=== PATIENT | female | born 1995 | race Caucasian/White ===

== ENCOUNTER 2018-01-20 17:12 | Emergency (ER) | payer OTHER, MEDICAID ==
[~2018-01-20] VITALS: Ht 162.6 cm; Wt 76.7 kg
[~2018-01-20 17:12] MED LIST: ADDERALL 20 MG20 MG; CEPHALEXIN 500500 M3 PO; IBUPROFEN 800800 M1 PO; TYLENOL325 MG PO; [UNRECOGNIZED DRUG - REMARK]
[2018-01-20] MEDS ORDERED: DEPO-PROVER150 MG/M1 IM (17:27)
[2018-01-20 18:14] LABS: URINE BILIRUBIN NEGATIVE (Negative); URINE BLOOD 2+ (Negative); URINE CLARITY CLOUDY; URINE COLOR YELLOW; URINE GLUCOSE-RANDOM NEGATIVE (Negative); URINE KETONES NEGATIVE (Negative); URINE LEUKOCYTES-REFLEX NEGATIVE (Negative); URINE NITRITE-REFLEX NEGATIVE (Negative); URINE PROTEIN 1+ (Negative); URINE UROBILINOGEN 0.2 E.U./dl (0.2-1.0)
[2018-01-20 18:23] LABS: BACTERIA-REFLEX 1-9 Few /HPF (None Seen); CASTS None Seen /LPF (None Seen); MUCUS 0-3 Light strn/LPF (None Seen); SQUAMOUS 4-10 Moderate /LPF (0-3); URINE RBC 3-10 Few /HPF (0-2); URINE WBC-REFLEX 0-5 Rare /HPF (0-5)
[2018-01-20 18:24] LABS: AMORPHOUS PHOSPHATES Many /LPF (None Seen)
[2018-01-20] MEDS ORDERED: FLAGYL500 MG PO (18:48)
[2018-01-20 19:05] VITALS: BP 107/65
== END 2018-01-20 19:08 | disposition home or self-care (01) ==
LOC: M.ERS 17:12
PROVIDERS: Physician Assistant
DX: N76.0 Acute vaginitis (principal); B96.89 Other specified bacterial agents as the cause of diseases classified elsewhere; N72 Inflammatory disease of cervix uteri; A59.9 Trichomoniasis, unspecified; Z90.49 Acquired absence of other specified parts of digestive tract

== ENCOUNTER 2018-01-24 10:57 | Emergency (ER) | payer OTHER, MEDICAID ==
[~2018-01-24] VITALS: Ht 162.6 cm; Wt 76.7 kg
[~2018-01-24 10:57] MED LIST changes: +DEPO-PROVER150 MG/M1 IM; +FLAGYL500 MG PO
[2018-01-24 11:35] LABS: INFLUENZA A ANTIGEN None Detected (None Detect)
[2018-01-24] MEDS ORDERED: FLONASE 0.05%50 MCG NASAL (11:39)
[2018-01-24] MEDS ORDERED: OSELB75 PO (11:39)
[2018-01-24 12:00] VITALS: BP 120/81
== END 2018-01-24 12:08 | disposition home or self-care (01) ==
LOC: M.ERS 10:57
PROVIDERS: Nurse Practitioner Family
DX: J10.1 Influenza due to other identified influenza virus with other respiratory manifestations (principal); L98.8 Other specified disorders of the skin and subcutaneous tissue; Z90.49 Acquired absence of other specified parts of digestive tract

== ENCOUNTER 2018-04-08 13:48 | Emergency (ER) | payer OTHER, MEDICAID ==
[~2018-04-08] VITALS: Ht 162.6 cm; Wt 83.0 kg
[~2018-04-08 13:48] MED LIST changes: +FLONASE 0.05%50 MCG NASAL; +OSELB75 PO
[2018-04-08 14:21] LABS: URINE BILIRUBIN NEGATIVE (Negative); URINE BLOOD 2+ (Negative); URINE CLARITY CLEAR; URINE COLOR YELLOW; URINE GLUCOSE-RANDOM NEGATIVE (Negative); URINE KETONES NEGATIVE (Negative); URINE LEUKOCYTES-REFLEX NEGATIVE (Negative); URINE NITRITE-REFLEX NEGATIVE (Negative); URINE PROTEIN 1+ (Negative); URINE SPECIFIC GRAVITY 1.015 (1.005-1.030)
[2018-04-08 14:27] LABS: SQUAMOUS >10 Many /LPF (0-3)
[2018-04-08 14:28] LABS: BACTERIA-REFLEX None Seen /HPF (None Seen); CASTS None Seen /LPF (None Seen); CRYSTALS None Seen /LPF (None Seen); MUCUS 0-3 Light strn/LPF (None Seen); URINE RBC 3-10 Few /HPF (0-2); URINE WBC-REFLEX None Seen /HPF (0-5)
[2018-04-08 14:49] LABS: ABSOLUTE BASOPHILS 0.2 thou/uL (0.0-0.2); ABSOLUTE EOSINOPHILS 0.6 thou/uL (0.0-0.7); ABSOLUTE MONOCYTES 0.6 thou/uL (0.0-1.2); BASOPHILS 1.5 %; EOSINOPHILS 4.9 %; HEMATOCRIT 43.8 % (37.0-47.0); HEMOGLOBIN 14.7 gm/dL (12.0-15.0); LYMPHOCYTES 31.9 %; MCH 28.5 pg (26.0-34.0); MCHC 33.5 g/dL (28.0-37.0); MCV 85.1 fL (80.0-100.0); MONOCYTES 5.2 %; MPV 7.5 fl. (7.2-11.1); NUCLEATED RBCS 0 /100WBC; PLATELET COUNT* 361 thou/uL (150-400); POLYS 56.5 %; RBC 5.14 mil/uL (4.20-5.00); RDW-CV 13.5 % (10.5-14.5); WBC 12.5 thou/uL (4.0-11.0)
[2018-04-08 15:04] LABS: CALCIUM 9.2 mg/dL (8.5-10.1); CREATININE 0.6 mg/dL (0.6-1.3)
[2018-04-08 15:09] LABS: ALBUMIN 3.8 g/dL (3.4-5.0); TOTAL BILIRUBIN 0.7 mg/dL (<0.1-1.0); TOTAL PROTEIN 7.5 g/dL (6.4-8.2)
[2018-04-08] MEDS ORDERED: TRAMADOL 50 MG50 MG PO (15:37)
[2018-04-08] MEDS ORDERED: FLAGYL500 MG PO (15:37)
[2018-04-08 15:48] VITALS: BP 130/84
== END 2018-04-08 15:49 | disposition home or self-care (01) ==
LOC: M.ERS 13:48
PROVIDERS: Physician Assistant
DX: G89.29 Other chronic pain (principal); R10.9 Unspecified abdominal pain; N76.0 Acute vaginitis; B96.89 Other specified bacterial agents as the cause of diseases classified elsewhere; Z90.49 Acquired absence of other specified parts of digestive tract

== ENCOUNTER 2018-06-01 13:19 | Emergency (ER) | payer OTHER, MEDICAID ==
[~2018-06-01] VITALS: Ht 162.6 cm; Wt 78.9 kg
[~2018-06-01 13:19] MED LIST changes: +TRAMADOL 50 MG50 MG PO
[2018-06-01 13:44] LABS: URINE BLOOD 2+ (Negative); URINE CLARITY CLEAR; URINE COLOR YELLOW; URINE GLUCOSE-RANDOM NEGATIVE (Negative); URINE KETONES NEGATIVE (Negative); URINE LEUKOCYTES-REFLEX 1+ (Negative); URINE NITRITE-REFLEX NEGATIVE (Negative); URINE PROTEIN 1+ (Negative); URINE SPECIFIC GRAVITY >= 1.030 (1.005-1.030); URINE UROBILINOGEN 0.2 E.U./dl (0.2-1.0)
[2018-06-01 13:50] LABS: ICTOTEST (BILI CONFIRMATORY) Negative (Negative); URINE BILIRUBIN 1+ (Negative)
[2018-06-01 14:06] LABS: SQUAMOUS 4-10 Moderate /LPF (0-3)
[2018-06-01 14:07] LABS: BACTERIA-REFLEX >30 Many /HPF (None Seen); CASTS None Seen /LPF (None Seen); CRYSTALS None Seen /LPF (None Seen); MUCUS 4-6 Moderate strn/LPF (None Seen); URINE RBC 0-2 Rare /HPF (0-2); URINE WBC-REFLEX 0-5 Rare /HPF (0-5)
[2018-06-01] MEDS ORDERED: BACTRIM DS TAB1 EACH PO (14:10)
[2018-06-01] MEDS ORDERED: FLAGYL500 M1 PO (14:10)
[2018-06-01] MEDS ORDERED: CLINDAMYCIN HC300 MG PO (14:19)
[2018-06-01] MEDS ORDERED: KEFLEX500 M1 PO (14:19)
[2018-06-01 14:27] VITALS: BP 121/85
== END 2018-06-01 14:27 | disposition home or self-care (01) ==
LOC: M.ERS 13:19
PROVIDERS: Emergency Medicine Emergency Medical Services
DX: N39.0 Urinary tract infection, site not specified (principal); N76.0 Acute vaginitis; Z33.1 Pregnant state, incidental; Z3A.01 Less than 8 weeks gestation of pregnancy; Z90.49 Acquired absence of other specified parts of digestive tract

== ENCOUNTER 2018-06-11 17:01 | Emergency (ER) | payer OTHER, MEDICAID ==
[~2018-06-11] VITALS: Ht 162.6 cm; Wt 81.2 kg
[~2018-06-11 17:01] MED LIST changes: +BACTRIM DS TAB1 EACH PO; +CLINDAMYCIN HC300 MG PO; +FLAGYL500 M1 PO; +KEFLEX500 M1 PO
[2018-06-11 17:55] LABS: ABSOLUTE BASOPHILS 0.1 thou/uL (0.0-0.2); ABSOLUTE EOSINOPHILS 0.5 thou/uL (0.0-0.7); ABSOLUTE LYMPHOCYTES 2.7 thou/uL (0.8-5.3); ABSOLUTE MONOCYTES 0.8 thou/uL (0.0-1.2); ABSOLUTE NEUTROPHILS 5.2 thou/uL (1.6-8.1); BASOPHILS 1.2 %; EOSINOPHILS 4.9 %; HEMATOCRIT 39.6 % (37.0-47.0); HEMOGLOBIN 13.1 gm/dL (12.0-15.0); MCH 28.4 pg (26.0-34.0); MCHC 33.1 g/dL (28.0-37.0); MCV 85.8 fL (80.0-100.0); MONOCYTES 8.3 %; MPV 7.8 fl. (7.2-11.1); NUCLEATED RBCS 0 /100WBC; PLATELET COUNT* 294 thou/uL (150-400); POLYS 56.6 %; RBC 4.62 mil/uL (4.20-5.00); RDW-CV 13.3 % (10.5-14.5); WBC 9.2 thou/uL (4.0-11.0)
[2018-06-11 18:01] LABS: CALCIUM 8.6 mg/dL (8.5-10.1); CREATININE 0.5 mg/dL (0.6-1.3); POTASSIUM 3.5 mmol/L (3.5-5.1)
[2018-06-11 18:06] LABS: ALBUMIN 3.3 g/dL (3.4-5.0); TOTAL BILIRUBIN 0.6 mg/dL (<0.1-1.0); TOTAL PROTEIN 6.9 g/dL (6.4-8.2)
[2018-06-11 18:44] LABS: URINE BILIRUBIN NEGATIVE (Negative); URINE BLOOD 1+ (Negative); URINE CLARITY CLEAR; URINE COLOR YELLOW; URINE GLUCOSE-RANDOM NEGATIVE (Negative); URINE KETONES NEGATIVE (Negative); URINE LEUKOCYTES-REFLEX 1+ (Negative); URINE NITRITE-REFLEX NEGATIVE (Negative); URINE PROTEIN NEGATIVE (Negative); URINE SPECIFIC GRAVITY <= 1.005 (1.005-1.030); URINE UROBILINOGEN 0.2 E.U./dl (0.2-1.0)
[2018-06-11 19:08] LABS: BACTERIA-REFLEX 1-9 Few /HPF (None Seen); CASTS None Seen /LPF (None Seen); CRYSTALS None Seen /LPF (None Seen); MUCUS 0-3 Light strn/LPF (None Seen); SQUAMOUS 0-3 Few /LPF (0-3); URINE RBC 3-10 Few /HPF (0-2); URINE WBC-REFLEX 0-5 Rare /HPF (0-5)
[2018-06-11] MEDS ORDERED: MACROBID 100 M100 M1 PO (19:10)
[2018-06-11 19:20] VITALS: BP 103/66
== END 2018-06-11 19:21 | disposition home or self-care (01) ==
LOC: M.ERS 17:01
PROVIDERS: Nurse Practitioner Family
DX: O46.91 Antepartum hemorrhage, unspecified, first trimester (principal); O23.41 Unspecified infection of urinary tract in pregnancy, first trimester; Z3A.01 Less than 8 weeks gestation of pregnancy

== ENCOUNTER 2018-09-05 22:28 | Emergency (ER) | payer OTHER, MEDICAID ==
[~2018-09-05] VITALS: Ht 162.6 cm; Wt 75.8 kg
[~2018-09-05 22:28] MED LIST changes: +MACROBID 100 M100 M1 PO
[2018-09-05] MEDS ORDERED: PRENATAL GUMMI1 EACH (22:44)
[2018-09-05 23:17] LABS: URINE BILIRUBIN NEGATIVE (Negative); URINE BLOOD 2+ (Negative); URINE CLARITY CLEAR; URINE COLOR YELLOW; URINE GLUCOSE-RANDOM NEGATIVE (Negative); URINE KETONES NEGATIVE (Negative); URINE LEUKOCYTES TRACE (Negative); URINE NITRITE NEGATIVE (Negative); URINE PROTEIN NEGATIVE (Negative); URINE UROBILINOGEN 0.2 E.U./dl (0.2-1.0)
[2018-09-05 23:30] LABS: INFLUENZA A ANTIGEN None Detected (None Detect); INFLUENZA B ANTIGEN None Detected (None Detect)
[2018-09-05 23:30] LABS: ABSOLUTE BASOPHILS 0.1 thou/uL (0.0-0.2); ABSOLUTE EOSINOPHILS 0.2 thou/uL (0.0-0.7); ABSOLUTE LYMPHOCYTES 2.8 thou/uL (0.8-5.3); ABSOLUTE MONOCYTES 0.7 thou/uL (0.0-1.2); ABSOLUTE NEUTROPHILS 7.7 thou/uL (1.6-8.1); BASOPHILS 0.7 %; EOSINOPHILS 2.1 %; HEMATOCRIT 36.8 % (37.0-47.0); HEMOGLOBIN 12.4 gm/dL (12.0-15.0); LYMPHOCYTES 24.2 %; MCH 28.8 pg (26.0-34.0); MCHC 33.8 g/dL (28.0-37.0); MCV 85.3 fL (80.0-100.0); MPV 7.6 fl. (7.2-11.1); NUCLEATED RBCS 0 /100WBC; PLATELET COUNT* 262 thou/uL (150-400); RBC 4.31 mil/uL (4.20-5.00); RDW-CV 13.6 % (10.5-14.5); WBC 11.5 thou/uL (4.0-11.0)
[2018-09-05 23:38] LABS: CALCIUM 9.3 mg/dL (8.5-10.1); CREATININE 0.4 mg/dL (0.6-1.3); POTASSIUM 3.5 mmol/L (3.5-5.1)
[2018-09-05 23:43] LABS: ALBUMIN 3.1 g/dL (3.4-5.0); TOTAL BILIRUBIN 0.5 mg/dL (<0.1-1.0); TOTAL PROTEIN 6.8 g/dL (6.4-8.2)
[2018-09-06 00:01] LABS: FINE GRANULAR CASTS 0-3 Few /LPF (None Seen); SQUAMOUS >10 Many /LPF (0-3)
[2018-09-06 00:02] LABS: URINE WBC 0-5 Rare /HPF (0-5)
[2018-09-06 00:03] LABS: BACTERIA 1-9 Few /HPF (None Seen); CRYSTALS None Seen /LPF (None Seen); URINE RBC 3-10 Few /HPF (0-2)
[2018-09-06] MEDS ORDERED: CEFDINIR300 MG PO (00:25)
[2018-09-06] MEDS ORDERED: ONDANSETRON HCL4 M2 PO (00:25)
[2018-09-06 01:50] VITALS: BP 103/65
== END 2018-09-06 01:50 | disposition home or self-care (01) ==
LOC: M.ERS 22:28
PROVIDERS: Emergency Medicine; Nurse Practitioner Family
DX: H66.92 Otitis media, unspecified, left ear (principal); N39.0 Urinary tract infection, site not specified; F17.210 Nicotine dependence, cigarettes, uncomplicated; Z90.49 Acquired absence of other specified parts of digestive tract

== ENCOUNTER 2019-04-22 09:09 | Emergency (ER) | payer OTHER, MEDICAID ==
[~2019-04-22] VITALS: Ht 162.6 cm; Wt 78.9 kg
[~2019-04-22 09:09] MED LIST changes: +CEFDINIR300 MG PO; +ONDANSETRON HCL4 M2 PO; +PRENATAL GUMMI1 EACH
[2019-04-22 09:28] LABS: URINE BILIRUBIN NEGATIVE (Negative); URINE BLOOD TRACE (Negative); URINE CLARITY CLEAR; URINE COLOR YELLOW; URINE GLUCOSE-RANDOM NEGATIVE (Negative); URINE KETONES NEGATIVE (Negative); URINE LEUKOCYTES-REFLEX TRACE (Negative); URINE NITRITE-REFLEX NEGATIVE (Negative); URINE PROTEIN 1+ (Negative); URINE SPECIFIC GRAVITY >= 1.030 (1.005-1.030); URINE UROBILINOGEN 0.2 E.U./dl (0.2-1.0)
[2019-04-22 09:33] LABS: SQUAMOUS >10 Many /LPF (0-3)
[2019-04-22 09:34] LABS: CASTS None Seen /LPF (None Seen); CRYSTALS None Seen /LPF (None Seen); MUCUS >6 Heavy strn/LPF (None Seen); URINE RBC 0-2 Rare /HPF (0-2); URINE WBC-REFLEX 0-5 Rare /HPF (0-5)
[2019-04-22 09:51] LABS: ABSOLUTE BASOPHILS 0.1 thou/uL (0.0-0.2); ABSOLUTE EOSINOPHILS 0.6 thou/uL (0.0-0.7); ABSOLUTE LYMPHOCYTES 2.7 thou/uL (0.8-5.3); ABSOLUTE MONOCYTES 0.5 thou/uL (0.0-1.2); BASOPHILS 0.6 %; EOSINOPHILS 7.2 %; HEMOGLOBIN 13.9 gm/dL (12.0-15.0); LYMPHOCYTES 30.4 %; MCH 27.9 pg (26.0-34.0); MCV 84.5 fL (80.0-100.0); MONOCYTES 5.2 %; MPV 7.8 fl. (7.2-11.1); NUCLEATED RBCS 0 /100WBC; PLATELET COUNT* 319 thou/uL (150-400); POLYS 56.6 %; RBC 4.97 mil/uL (4.20-5.00); RDW-CV 14.4 % (10.5-14.5); WBC 8.8 thou/uL (4.0-11.0)
[2019-04-22 09:58] LABS: CALCIUM 8.9 mg/dL (8.5-10.1); CREATININE 0.7 mg/dL (0.6-1.3); POTASSIUM 3.5 mmol/L (3.5-5.1)
[2019-04-22 10:02] LABS: ALBUMIN 3.7 g/dL (3.4-5.0); TOTAL BILIRUBIN 1.3 mg/dL (<0.1-1.0); TOTAL PROTEIN 7.6 g/dL (6.4-8.2)
[2019-04-22 10:11] VITALS: BP 102/70
== END 2019-04-22 10:12 | disposition home or self-care (01) ==
LOC: M.ERS 09:09
PROVIDERS: Family Medicine
DX: R19.7 Diarrhea, unspecified (principal); R10.84 Generalized abdominal pain; F17.210 Nicotine dependence, cigarettes, uncomplicated; Z90.49 Acquired absence of other specified parts of digestive tract

== ENCOUNTER 2019-05-29 10:10 | Emergency (ER) | payer OTHER, MEDICAID ==
[~2019-05-29] VITALS: Ht 162.6 cm; Wt 76.7 kg
[~2019-05-29 10:10] MED LIST changes: +AFRIN15 ML NASAL; +AUGMENTIN 500-1 EACH PO; +LORATIDINE 10 M10 M1 PO; +MEDROLDOSEPACK PO
[2019-05-29 10:54] LABS: ABSOLUTE BASOPHILS 0.1 thou/uL (0.0-0.2); ABSOLUTE EOSINOPHILS 0.3 thou/uL (0.0-0.7); ABSOLUTE LYMPHOCYTES 2.9 thou/uL (0.8-5.3); ABSOLUTE MONOCYTES 0.5 thou/uL (0.0-1.2); ABSOLUTE NEUTROPHILS 5.2 thou/uL (1.6-8.1); EOSINOPHILS 3.3 %; HEMOGLOBIN 13.5 gm/dL (12.0-15.0); LYMPHOCYTES 32.7 %; MCH 28.3 pg (26.0-34.0); MCHC 33.6 g/dL (28.0-37.0); MCV 84.1 fL (80.0-100.0); MONOCYTES 5.1 %; MPV 7.5 fl. (7.2-11.1); NUCLEATED RBCS 0 /100WBC; PLATELET COUNT* 313 thou/uL (150-400); POLYS 57.9 %; RBC 4.76 mil/uL (4.20-5.00); RDW-CV 13.5 % (10.5-14.5)
[2019-05-29 11:02] LABS: ANION GAP 9 mmol/L (7-16); BUN 9 mg/dL (7-18); CALCIUM 8.8 mg/dL (8.5-10.1); CHLORIDE 104 mmol/L (98-107); CO2 29 mmol/L (21-32); CREATININE 0.6 mg/dL (0.6-1.3); GLUCOSE 136 mg/dL (70-99); POTASSIUM 3.6 mmol/L (3.5-5.1); SODIUM 142 mmol/L (136-145)
[2019-05-29 11:13] LABS: ALBUMIN 3.8 g/dL (3.4-5.0); ALKALINE PHOSPHATASE 96 U/L (46-116); NT-PRO BRAIN NAT PEPTIDE 5 pg/mL (<300); SGOT 18 U/L (15-37); SGPT 35 U/L (30-65); TOTAL BILIRUBIN 0.6 mg/dL (<0.1-1.0); TOTAL PROTEIN 7.6 g/dL (6.4-8.2); TROPONIN-I LEVEL <0.06 ng/mL (<0.06)
[2019-05-29] MEDS ORDERED: TESSALON PERLE100 MG PO (11:50)
[2019-05-29 12:04] VITALS: BP 133/72
--- NOTE | 2019-05-29 15:30 | EKG ---
[place] [address] ELECTROCARDIOGRAM REPORT Name: JOYCE HERR Room: [facility]#: [id number] Admission: 05/29/19 Attend Phys: Discharge: 05/29/19 Date of : [birth year] Report #: [id number] THIS REPORT FOR: //name// [facility] ED Test Date: 2019-05-29 Test Time: 10:49:17 Pat Name: JOYCE HERR Department: Room: Gender: F Application Internship: : 1995 Requested By: Jaymie Alvarenga Order Number: [id number] MD: Sea Villalba Measurements Intervals [place] Rate: 86 P: 31 GA: 154 QRS: 61 QRSD: 88 T: 42 QT: 370 QTc: 443 Interpretive Statements Sinus rhythm No previous ECG available for comparison Electronically Signed On 05-29-2019 15:30:16 CDT by Sea Villalba [email or web address] <ELECTRONICALLY SIGNED> By: Sea Villalba MD, [facility] 05/29/19 1530 1049 1049 Sea Villalba MD, FACC /EPI
== END 2019-05-29 12:05 | disposition home or self-care (01) ==
LOC: M.ERS 10:10
PROVIDERS: Nurse Practitioner Family
DX: J20.9 Acute bronchitis, unspecified (principal); J01.90 Acute sinusitis, unspecified; Z90.49 Acquired absence of other specified parts of digestive tract; Z98.51 Tubal ligation status

== ENCOUNTER 2019-12-03 14:20 | Emergency (ER) | payer OTHER ==
[~2019-12-03] VITALS: Ht 162.6 cm; Wt 65.8 kg
[~2019-12-03 14:20] MED LIST changes: +TESSALON PERLE100 MG PO
[2019-12-03 15:05] LABS: INFLUENZA A ANTIGEN Negative (Negative); INFLUENZA B ANTIGEN Negative (Negative)
[2019-12-03] MEDS ORDERED: DIFLUCAN150 M1 PO (15:33)
[2019-12-03] MEDS ORDERED: AUGMENTIN 875-1 EACH PO (15:33)
[2019-12-03 15:46] VITALS: BP 110/74
== END 2019-12-03 15:47 | disposition home or self-care (01) ==
LOC: M.ERS 14:20
PROVIDERS: Nurse Practitioner Family
DX: N76.0 Acute vaginitis (principal); J32.9 Chronic sinusitis, unspecified; Z90.49 Acquired absence of other specified parts of digestive tract; Z98.51 Tubal ligation status

== ENCOUNTER 2021-04-02 15:54 | Emergency (ER) | payer OTHER ==
[~2021-04-02] VITALS: Ht 162.6 cm; Wt 69.8 kg
[~2021-04-02 15:54] MED LIST changes: +AUGMENTIN 875-1 EACH PO; +DIFLUCAN150 M1 PO
[2021-04-02] MEDS ORDERED: MEDROLDOSEPACK PO (17:26)
[2021-04-02] MEDS ORDERED: BUTALB-APAP-CA1 EACH PO ×2 (17:26→17:40)
[2021-04-02 17:47] VITALS: BP 111/75
--- NOTE | 2021-04-03 16:43 | EKG ---
[place] [address] ELECTROCARDIOGRAM REPORT Name: JOYCE HERR Room: [facility]#: [id number] Admission: 04/02/21 Attend Phys: Discharge: 04/02/21 Date of : [birth year] Date of Service: 04/02/21 1607 Report #: [id number] THIS REPORT FOR: //name// [facility] ED Test Date: 2021-04-02 Test Time: 16:07:50 Pat Name: JOYCE HERR Department: Room: Gender: Toggler: : 1995 Requested By: Luiz Lucero Order Number: [id number] Olivier MD: Lazarus Jones Measurements Intervals [place] Rate: 107 P: 82 [place]: 168 QRS: 60 QRSD: 83 T: 58 QT: 313 QTc: 418 Interpretive Statements Sinus tachycardia Consider right atrial enlargement Compared to ECG 05/29/2019 10:49:17 Heart rate has increased and minor ST-T changes have occurred Electronically Signed On 04-03-2021 16:43:20 CDT by Lazarus Jones [email or web address] <ELECTRONICALLY SIGNED> By: Lazarus Jones MD, [facility] 04/03/21 1643 1607 1607 Lazarus Jones MD, [facility] /EPI
== END 2021-04-02 17:48 | disposition home or self-care (01) ==
LOC: M.ERS 15:54
DX: J06.9 Acute upper respiratory infection, unspecified (principal); Z20.822 Contact with and (suspected) exposure to COVID-19; Z98.51 Tubal ligation status; Z90.49 Acquired absence of other specified parts of digestive tract

== ENCOUNTER 2021-11-26 10:26 | Emergency (ER) | payer OTHER, MEDICAID ==
[~2021-11-26] VITALS: Ht 162.6 cm; Wt 68.0 kg
[~2021-11-26 10:26] MED LIST changes: +BUTALB-APAP-CA1 EACH PO
[2021-11-26 12:37] VITALS: BP 121/89
== END 2021-11-26 12:38 | disposition home or self-care (01) ==
LOC: M.ERS 10:26
DX: S05.12XA Contusion of eyeball and orbital tissues, left eye, initial encounter (principal); Z90.49 Acquired absence of other specified parts of digestive tract; Z98.51 Tubal ligation status; Y08.89XA Assault by other specified means, initial encounter; Y93.89 Activity, other specified; Y92.89 Other specified places as the place of occurrence of the external cause; Y99.8 Other external cause status